=== PATIENT | female | born 1955 | race Caucasian/White ===

== ENCOUNTER → 2016-04-30 | Outpatient (CLI) | payer BC | LOC: CIMAGING 10:42 | PROVIDERS: ATTEND Internal Medicine Nephrology | DX: R80.9 Proteinuria, unspecified (principal) | CPT/HCPCS: 76770-PO ==

== ENCOUNTER → 2016-11-20 | Outpatient (CLI) | payer BC | LOC: CIMAGING 10:38 | PROVIDERS: ATTEND Internal Medicine | DX: Z12.31 Encounter for screening mammogram for malignant neoplasm of breast (principal) | CPT/HCPCS: G0202 ==

== ENCOUNTER → 2017-11-23 | Outpatient (CLI) | payer OTHER | LOC: CIMAGING 08:02 | PROVIDERS: ATTEND Internal Medicine | DX: Z12.31 Encounter for screening mammogram for malignant neoplasm of breast (principal) ==